=== PATIENT | female | born 1960 | race Caucasian/White ===

== ENCOUNTER 2018-11-12 09:38 | Emergency (ER) | payer BC, MEDICARE, OTHER ==
[~2018-11-12] VITALS: Ht 172.7 cm; Wt 109.5 kg
[2018-11-12 09:40] VITALS: BP 130/66
== END 2018-11-12 10:34 | disposition home or self-care (01) ==
LOC: ED 10:22
DX: K08.89 Other specified disorders of teeth and supporting structures (principal)
CPT/HCPCS: 64400; 99284

== ENCOUNTER 2019-11-27 12:15 | Emergency (ER) | payer MEDICARE ==
[~2019-11-27] VITALS: Ht 170.2 cm; Wt 122.7 kg
[2019-11-27 12:23] VITALS: BP 144/59
--- NOTE | 2019-11-27 13:11 | NUR ---
CHAIN BUILDER LOOM CONTROL: PT TO ROOM VIA WHEELCHAIR FROM [facility]
[2019-11-27] MEDS ORDERED: METHOCARBAMOL 750 MG TABLET ONE (13:32)
[2019-11-27] MEDS ORDERED: OXYcodone/APAP 5/325MG TABLET ONE (13:32)
--- NOTE | 2019-11-27 13:57 | NUR ---
BEDSIDE COMMODE IN ROOM. PT ABLE TO TRANSFER STEADILY ON HER OWN. AT BEDSIDE.
[2019-11-27] MEDS ORDERED: METHOCARBAMOL 750 MG TABLET PO ONE (14:00)
[2019-11-27] MEDS ORDERED: OXYcodone/APAP 5/325MG TABLET PO ONE (14:00)
--- NOTE | 2019-11-27 14:21 | NUR ---
PT IS SECOND IN LINE TO GO FOR CT.
--- NOTE | 2019-11-27 16:24 | NUR ---
LEGEND MAKER: Patient/Caregiver given discharge instructions and they have confirmed that they understand the instructions. Patient ambulatory to wheelchair for discharge home
== END 2019-11-27 16:25 | disposition home or self-care (01) ==
LOC: ED 15:51
DX: S39.012A Strain of muscle, fascia and tendon of lower back, initial encounter (principal); Z88.0 Allergy status to penicillin; W18.30XA Fall on same level, unspecified, initial encounter; Y93.89 Activity, other specified; Y92.89 Other specified places as the place of occurrence of the external cause; Y99.8 Other external cause status
CPT/HCPCS: 72131; 72192; 99285

== ENCOUNTER 2020-03-23 15:51 | Emergency (ER) | payer MEDICARE ==
[~2020-03-23] VITALS: Ht 170.2 cm; Wt 121.2 kg
--- NOTE | 2020-03-23 16:33 | NUR ---
PA-C EVALUATED IN TRIAGE.
[2020-03-23 17:57] VITALS: BP 135/81
--- NOTE | 2020-03-23 18:30 | NUR ---
ASSUMED CARE OF PT FROM LOBBY AT THIS TIME. ALL IMAGING BACK AND CHART UP FOR MD.
[2020-03-23] MEDS ORDERED: ABILIFY ×2 (18:35→18:36)
[2020-03-23] MEDS ORDERED: DIAZ5TAB PO (18:35)
[2020-03-23] MEDS ORDERED: GABA300C PO (18:35)
[2020-03-23] MEDS ORDERED: ABILIFY IM (18:37)
[2020-03-23] MEDS ORDERED: TRAZ-175 PO (18:37)
[2020-03-23] MEDS ORDERED: KETOROLAC 30 MG/1 ML IM ONE (19:30)
== END 2020-03-23 19:48 | disposition home or self-care (01) ==
LOC: ED 16:20
DX: G89.11 Acute pain due to trauma (principal); M25.511 Pain in right shoulder; M25.521 Pain in right elbow; M79.601 Pain in right arm; W01.0XXA Fall on same level from slipping, tripping and stumbling without subsequent striking against object, initial encounter; Y93.89 Activity, other specified; Y92.009 Unspecified place in unspecified non-institutional (private) residence as the place of occurrence of the external cause; Y99.8 Other external cause status
CPT/HCPCS: 99284

== ENCOUNTER 2020-05-07 13:53 | Emergency (ER) | payer MEDICARE ==
[~2020-05-07] VITALS: Ht 170.2 cm; Wt 120.0 kg
[~2020-05-07 13:53] MED LIST: ABILIFY; ABILIFY IM; DIAZ5TAB PO; GABA300C PO; TRAZ-175 PO
[2020-05-07 14:37] VITALS: BP 142/79
== END 2020-05-07 18:45 | disposition home or self-care (01) ==
LOC: ED 18:15
DX: S39.012A Strain of muscle, fascia and tendon of lower back, initial encounter (principal); M51.36 Other intervertebral disc degeneration, lumbar region; W18.30XA Fall on same level, unspecified, initial encounter; Y93.89 Activity, other specified; Y92.89 Other specified places as the place of occurrence of the external cause; Y99.8 Other external cause status
CPT/HCPCS: 72110; 99283

== ENCOUNTER → 2020-10-15 | Outpatient (CLI) | payer MEDICARE | END | disposition home or self-care (01) | LOC: CVU 12:12 | PROVIDERS: ATTEND Nurse Practitioner | DX: R06.02 Shortness of breath (principal) | CPT/HCPCS: C8929; Q9957 ==